=== PATIENT | female | born 1985 | race Caucasian/White ===

== ENCOUNTER 2018-12-02 17:48 | Outpatient (CLI) | payer MEDICAID | END 2018-12-02 18:53 | disposition home or self-care (01) | LOC: OBT 17:48 → L-D 17:51 → OBT 18:53 | DX: O40.3XX0 Polyhydramnios, third trimester, not applicable or unspecified (principal); Z3A.35 35 weeks gestation of pregnancy | CPT/HCPCS: 76818 ==